=== PATIENT | male | born 1970 | race Caucasian/White ===

== ENCOUNTER 2017-06-27 14:04 | Emergency (ER) | payer OTHER ==
[2017-06-27] VITALS (7 sets, daily range): BP systolic 118–128; BP diastolic 63–79; PULSE 80–89; RESP 18; TEMP 98; O2SAT 95–99
[~2017-06-27] VITALS: Ht 182.9 cm; Wt 89.0 kg
--- NOTE | 2017-06-27 14:20 | PD ---
HPI . dizziness and tunnel vision x 2-3 days Chief Complaint: Dizziness Time Seen by Provider: 14:20 Travel History International Travel<30 days: No Contact w/Intl Traveler<30days: No Traveled to known affect area: No History of Present Illness HPI 46-year-old male with history of hypertension, hyperlipidemia, diabetes, cervical radiculopathy and tobaccoism here with 2 days worth of dizziness and television. Patient tells me that he's been experiencing intermittent dizziness and tunnel vision when bending over and squatting down. He was transferred to the emergency department via [facility] from the [facility] due to his symptoms. At this present moment he is not dizzy nor is he experiencing any tunnel vision. He denies any recent illness, chest pain, nausea, vomiting, diaphoresis, shortness of breath or other symptoms. He denies any recent head injury or injury in the past. No syncope. PFSH Past Medical History Hx Anticoagulant Therapy: No Diabetes: Yes Social History Tobacco Use: Yes Allergies-Medications (Allergen,Severity, Reaction): Coded Allergies: No Known Allergies (Unverified , 06/27/17) Reported Meds & Prescriptions Reported Meds & Active Scripts Active Meclizine (Meclizine HCl) 25 Mg Tab 25 Mg PO TID PRN Reported Metformin (Metformin HCl) 1,000 Mg Tab 1,000 Mg PO BID With meals Fish Oil ([place]-3 Fatty Acids) 1,000 Mg Cap 3 Cap PO BID Lantus Inj (Insulin Glargine) 100 Unit/Ml Inj 10 Units SQ HS Aspirin Adult Low Strength (Aspirin) 81 Mg Tabdr 81 Mg PO DAILY Lisinopril 5 Mg Tab 2.5 Mg PO DAILY Atorvastatin (Atorvastatin Calcium) 80 Mg Tab 40 Mg PO HS Review of Systems General / Constitutional: No: Fever Eyes: No: Visual changes HENT: No: Headaches Cardiovascular: No: Chest Pain or Discomfort Respiratory: No: Shortness of Breath Gastrointestinal: No: Abdominal Pain Genitourinary: No: Dysuria Musculoskeletal: No: Pain Skin: No Rash Neurologic: Positive: Dizziness, No: Weakness Psychiatric: No: Depression Endocrine: No: Polydipsia Hematologic/Lymphatic: No: Easy Bruising Physical Exam Narrative GENERAL: AAO x 3, no acute distress, Well-nourished, well-developed patient. SKIN: Warm and dry. No visible rashes or bruising. HEAD: Normocephalic and atraumatic. EYES: No scleral icterus. No injection or drainage. EOM intact, PERRLA ENT: No nasal drainage noted. Mucous membranes pink. Airway patent. TMs normal bilaterally except for small amount of cerumen. NECK: Supple, trachea midline. No JVD. Flexion extension normal, rotation is normal CARDIOVASCULAR: Regular rate and rhythm without murmurs, gallops, or rubs. RESPIRATORY: Breath sounds equal bilaterally. No accessory muscle use. No rhonchi or rales. GASTROINTESTINAL: Abdomen soft, non-tender, nondistended. Normoactive EXTREMITIES: No cyanosis or edema. BACK: No obvious deformity. NEURO: CN II-12 intact, production line solderer strength normal b/l, UE and LE 5/5, no focal deficits, no pronator drift. Negative Romberg PSYCH: AAO x 3, normal affect. Data Data Last Documented VS Vital Signs Date Time Temp Pulse Resp B/P Pulse Ox O2 Delivery O2 Flow Rate FiO2 06/27/17 18:02 98 126/76 06/27/17 15:30 18 99 Nasal Cannula 2 06/27/17 14:12 98.0 Orders Electrocardiogram (06/27/17 ) Complete Blood Count With Diff (06/27/17 14:29) Comprehensive Metabolic Panel (06/27/17 14:29) Prothrombin Time / Inr (Pt) (06/27/17 14:29) Act Partial Throm Time (Ptt) (06/27/17 14:29) Ct Brain W/O Iv Contrast(Rout) (06/27/17 14:29) Ecg Monitoring (06/27/17 14:29) Iv Access Insert/Monitor (06/27/17 14:29) Oximetry (06/27/17 14:29) Sodium Chloride 0.9% Flush (Ns Flush) (06/27/17 14:30) Ckmb (Isoenzyme) Profile (06/27/17 14:29) Magnesium (Mg) (06/27/17 14:29) Troponin I (06/27/17 14:29) Chest, Single Ap (06/27/17 14:29) Bilateral Bp Monitoring (06/27/17 14:29) Oxygen Administration (06/27/17 14:29) Sodium Chloride 0.9% Flush (Ns Flush) (06/27/17 14:30) CKMB (06/27/17 14:15) CKMB% (06/27/17 14:15) Sodium Chlor 0.9% 1000 Ml Inj (Ns 1000 M (06/27/17 16:45) ^ Other Nursing Orders (06/27/17 17:13) Labs Laboratory Tests Test 06/27/17 14:15 White Blood Count 10.5 TH/MM3 Red Blood Count 5.38 MIL/MM3 Hemoglobin 15.6 GM/DL Hematocrit 45.1 % Mean Corpuscular Volume 83.7 FL Mean Corpuscular Hemoglobin 29.0 PG Mean Corpuscular Hemoglobin 34.6 % Concent Red Cell Distribution Width 14.0 % Platelet Count 274 TH/MM3 Mean Platelet Volume 8.7 FL Neutrophils (%) (Auto) 82.8 % Lymphocytes (%) (Auto) 11.1 % Monocytes (%) (Auto) 4.4 % Eosinophils (%) (Auto) 1.1 % Basophils (%) (Auto) 0.6 % Neutrophils # (Auto) 8.7 TH/MM3 Lymphocytes # (Auto) 1.2 TH/MM3 Monocytes # (Auto) 0.5 TH/MM3 Eosinophils # (Auto) 0.1 TH/MM3 Basophils # (Auto) 0.1 TH/MM3 CBC Comment DIFF FINAL Differential Comment Prothrombin Time 10.3 SEC Prothromb Time International 0.9 RATIO Ratio Activated Partial 25.8 SEC Thromboplast Time Sodium Level 130 MEQ/L Potassium Level 4.2 MEQ/L Chloride Level 95 MEQ/L Carbon Dioxide Level 23.0 MEQ/L Anion Gap 12 MEQ/L Blood Urea Nitrogen 33 MG/DL Creatinine 1.28 MG/DL Estimat Glomerular Filtration 60 ML/MIN Rate Random Glucose 244 MG/DL Calcium Level 9.3 MG/DL Magnesium Level 2.0 MG/DL Total Bilirubin 0.8 MG/DL Aspartate Amino Transf 25 U/L (AST/SGOT) Alanine Aminotransferase 47 U/L (ALT/SGPT) Alkaline Phosphatase 75 U/L Total Creatine Kinase 257 U/L Creatine Kinase MB 1.6 NG/ML Troponin I LESS THAN 0.02 NG/ML Total Protein 8.4 GM/DL Albumin 4.4 GM/DL MDM Medical Decision Making Medical Screen Exam Complete: Yes Emergency Medical Condition: Yes Medical Record Reviewed: Yes Differential Diagnosis BPPV, Mnire's disease, dysrhythmia, carotid artery stenosis, brain tumor Narrative Course 46-year-old male here with complaints of intermittent dizziness and tunnel vision for 2-3 days. He was sent from the [place] [facility]. Exam was unremarkable. IV access obtained. Patient was placed on continuous cardiac monitoring. Labs , EKG and chest x-ray, CT scan of the brain have been ordered. Case has been discussed with Dr. Pacheco. All results reviewed and appreciated. Patient has sodium 130. Blood sugar is 233. CT of the brain unremarkable. Chest x-ray unremarkable. Orthostatic vitals normal. He has slightly elevated BUN of 33. IV fluids were given to the patient in emergency department. Last Impressions Head CT [id number]/27/[id number] Signed Impressions: Service Date/Time: Tuesday, June 27, 2017 16:07 - CONCLUSION: Negative for acute process. Doni Gomez MD FACR Chest X-Ray [id number]/27/[id number] Signed Impressions: Service Date/Time: Tuesday, June 27, 2017 14:42 - CONCLUSION: No acute disease. Doni Gomez MD FACR Laboratory Tests Test 06/27/17 14:15 White Blood Count 10.5 TH/MM3 Red Blood Count 5.38 MIL/MM3 Hemoglobin 15.6 GM/DL Hematocrit 45.1 % Mean Corpuscular Volume 83.7 FL Mean Corpuscular Hemoglobin 29.0 PG Mean Corpuscular Hemoglobin 34.6 % Concent Red Cell Distribution Width 14.0 % Platelet Count 274 TH/MM3 Mean Platelet Volume 8.7 FL Neutrophils (%) (Auto) 82.8 % Lymphocytes (%) (Auto) 11.1 % Monocytes (%) (Auto) 4.4 % Eosinophils (%) (Auto) 1.1 % Basophils (%) (Auto) 0.6 % Neutrophils # (Auto) 8.7 TH/MM3 Lymphocytes # (Auto) 1.2 TH/MM3 Monocytes # (Auto) 0.5 TH/MM3 Eosinophils # (Auto) 0.1 TH/MM3 Basophils # (Auto) 0.1 TH/MM3 CBC Comment DIFF FINAL Differential Comment Prothrombin Time 10.3 SEC Prothromb Time International 0.9 RATIO Ratio Activated Partial 25.8 SEC Thromboplast Time Sodium Level 130 MEQ/L Potassium Level 4.2 MEQ/L Chloride Level 95 MEQ/L Carbon Dioxide Level 23.0 MEQ/L Anion Gap 12 MEQ/L Blood Urea Nitrogen 33 MG/DL Creatinine 1.28 MG/DL Estimat Glomerular Filtration 60 ML/MIN Rate Random Glucose 244 MG/DL Calcium Level 9.3 MG/DL Magnesium Level 2.0 MG/DL Total Bilirubin 0.8 MG/DL Aspartate Amino Transf 25 U/L (AST/SGOT) Alanine Aminotransferase 47 U/L (ALT/SGPT) Alkaline Phosphatase 75 U/L Total Creatine Kinase 257 U/L Creatine Kinase MB 1.6 NG/ML Troponin I LESS THAN 0.02 NG/ML Total Protein 8.4 GM/DL Albumin 4.4 GM/DL He has been advised to follow-up with the primary care provider as an outpatient. At this time there is not much that we can do here in the emergency department. He may benefit from an outpatient neurology consult. Meclizine provided in the meantime. Patient aware of all results and recommended f/u care. He is in agreement with treatment plan. Diagnosis Primary Impression: BPPV (benign paroxysmal positional vertigo) Qualified Code: H81.10 - Benign paroxysmal positional vertigo, unspecified laterality Referrals: Neurologist Patient Instructions: General Instructions Additional Instructions: Please return to emergency department if your symptoms return or worsen. Follow up with your primary care provider. Take medications as prescribed. [facility]. Med/Other Pt SpecificInfo: Prescription(s) given Scripts Meclizine 25 Mg Tab25 Mg PO TID PRN (VERTIGO) #12 TAB Ref 0 Prov:Barrie Pacheco MD 06/27/17 Disposition: 01 DISCHARGE HOME Condition: Stable Gretchen Peterson Jun 27, 2017 14:20
[2017-06-27] MEDS ORDERED: SODIUM CHLORIDE 0.9% FLUSH 10 ML FLUSH IVF PRN ×2 (14:30)
[2017-06-27] MEDS ORDERED: FISH1000 PO (14:37)
[2017-06-27] MEDS ORDERED: LISI-519 PO (14:37)
[2017-06-27] MEDS ORDERED: LANTUS2P SQ (14:37)
[2017-06-27] MEDS ORDERED: ATOR1TAB18 PO (14:37)
[2017-06-27] MEDS ORDERED: METF1000 PO (14:37)
[2017-06-27] MEDS ORDERED: ASPI1TAB91 PO (14:37)
[2017-06-27 15:06] LABS: AUTOMATED NEUTROPHIL # 8.7 TH/MM3 (1.8-7.7); BASOPHIL # 0.1 TH/MM3 (0-0.2); BASOPHIL % 0.6 % (0.0-2.0); EOSINOPHIL # 0.1 TH/MM3 (0-0.4); EOSINOPHIL % 1.1 % (0.0-4.0); HEMATOCRIT 45.1 % (39.0-51.0); HEMO FLAGS DIFF FINAL; LYMPH % 11.1 % (9.0-44.0); LYMPHOCYTE # 1.2 TH/MM3 (1.0-4.8); MEAN CELL VOLUME 83.7 FL (80.0-100.0); MEAN CORPUSCULAR HGB CONC 34.6 % (32.0-36.0); MONO % 4.4 % (0.0-8.0); NEUT % 82.8 % (16.0-70.0); PLATELET COUNT 274 TH/MM3 (150-450); RED BLOOD COUNT 5.38 MIL/MM3 (4.50-5.90); WHITE BLOOD COUNT 10.5 TH/MM3 (4.0-11.0)
--- NOTE | 2017-06-27 15:12 | RADRPT ---
EXAM DATE/TIME: 06/27/2017 14:42 [facility] COMPARISON: No previous studies available for comparison. INDICATIONS : Hypotension. MEDICAL HISTORY : None. SURGICAL HISTORY : None. ENCOUNTER: Initial ACUITY: 2 days PAIN SCORE: 0/10 LOCATION: Bilateral chest FINDINGS: A single view of the chest demonstrates the lungs to be symmetrically aerated without evidence of mas s, infiltrate or effusion. The cardiomediastinal contours are unremarkable. Osseous structures are intact. CONCLUSION: No acute disease. Doni Gomez MD FACR on June 27, 2017 at 15:10 Board Certified Radiologist. This report was verified electronically.
[2017-06-27 15:17] LABS: APTT (PATIENT) 25.8 SEC (24.3-30.1); INTERNATIONAL NORMALIZED RATIO 0.9 RATIO; PROTHROMBIN TIME - PATIENT 10.3 SEC (9.8-11.6)
[2017-06-27 15:52] LABS: ALKALINE PHOSPHATASE 75 U/L (45-117); ALT (GPT) 47 U/L (12-78); ANION GAP 12 MEQ/L (5-15); AST (GOT) 25 U/L (15-37); BLOOD UREA NITROGEN 33 MG/DL (7-18); CHLORIDE 95 MEQ/L (98-107); CREATINE KINASE 257 U/L (39-308); GLOMERULAR FILTRATION RATE 60 ML/MIN (>89); POTASSIUM 4.2 MEQ/L (3.5-5.1); SODIUM (NA) 130 MEQ/L (136-145); TOTAL BILIRUBIN ADULT 0.8 MG/DL (0.2-1.0)
[2017-06-27 16:04] LABS: CKMB 1.6 NG/ML (0.5-3.6)
--- NOTE | 2017-06-27 16:20 | RADRPT ---
EXAM DATE/TIME: 06/27/2017 16:07 [facility] COMPARISON: No previous studies available for comparison. INDICATIONS : Dizziness, Hypotension, Headache, Visual changes. RADIATION DOSE: 49.54 CTDIvol (mGy) MEDICAL HISTORY : Hypertension. Carcinoma, testicular. Diabetes SURGICAL HISTORY : None. ENCOUNTER: Initial ACUITY: 3 days PAIN SCALE: 7/10 LOCATION: cranial TECHNIQUE: Multiple contiguous axial images were obtained of the head. Using automated exposure control and adj ustment of the mA and/or kV according to patient size, radiation dose was kept as low as reasonably a chievable to obtain optimal diagnostic quality images. DICOM format image data is available electro nically for review and comparison. FINDINGS: CEREBRUM: The ventricles are normal for age. No evidence of midline shift, mass lesion, hemorrhage or acute in farction. No extra-axial fluid collections are seen. POSTERIOR FOSSA: The cerebellum and brainstem are intact. The 4th ventricle is midline. The cerebellopontine angle i s unremarkable. Prominent cisterna magna EXTRACRANIAL: The visualized portion of the orbits is intact. SKULL: The calvaria is intact. No evidence of skull fracture. CONCLUSION: Negative for acute process. Doni Gomez MD FACR on June 27, 2017 at 16:18 Board Certified Radiologist. This report was verified electronically.
[2017-06-27] MEDS ORDERED: SODIUM CHLOR 0.9% 1000 ML INJ 1,000 ML IV ONE (16:45)
[2017-06-27] MEDS ORDERED: MECL-62 PO (17:13)
--- NOTE | 2017-06-28 13:14 | EKG ---
Date Performed: 06/27/2017 Time Performed: 14:25:49 PTAGE: 46 years EKG: Sinus rhythm NORMAL ECG INTERPRETATION BASED ON A DEFAULT AGE OF 38 YEARS NO PREVIOUS TRACING DOCTOR: Jak Mukherjee Interpretating Date/Time 06/28/2017 13:11:08
== END 2017-06-27 18:55 | disposition home or self-care (01) ==
LOC: NEPE 14:04
DX: H81.10 Benign paroxysmal vertigo, unspecified ear (principal); R51 Headache; I95.9 Hypotension, unspecified; E11.9 Type 2 diabetes mellitus without complications; I10 Essential (primary) hypertension; E78.5 Hyperlipidemia, unspecified; H53.489 Generalized contraction of visual field, unspecified eye; M54.12 Radiculopathy, cervical region; Z72.0 Tobacco use; Z79.4 Long term (current) use of insulin; Z79.84 Long term (current) use of oral hypoglycemic drugs
CPT/HCPCS: 70450; 71010; 80053; 82550; 82552; 83735; 84484; 85025; 85610; 85730; 93005; 96360; 99285; J7030